=== PATIENT | female | born 1965 | race Caucasian/White ===

== ENCOUNTER 2022-12-25 21:22 | Day surgery (SDC) | payer OTHER, SELFPAY ==
--- NOTE | ~2022-12-25 | CT_ITS ---
EXAMINATION: CT ABDOMEN AND PELVIS WITHOUT AND WITH CONTRAST CLINICAL INFORMATION: Abdominal pain. COMPARISON: None available. TECHNIQUE: Multidetector volumetric imaging was performed from the lung bases to the pubic symphysis following the administration of: Oral contrast: None Intravenous contrast: 65 mL Omnipaque 350 No contrast reaction reported. Sagittal and coronal reformatted images were obtained on the technologist's workstation. This CT examination was performed using dose optimization techniques as appropriate, variously including the following: *Automated exposure control *Adjustment of mA and/or kV according to patient size (this includes techniques or standardized protocols for targeted exams where dose is matched to indication/reason for exam; i.e. extremities or head) *Use of iterative reconstruction technique Total exam dose-length product 1299 mGy-cm. FINDINGS: VISUALIZED CHEST: Visualized lung bases and mediastinum are normal. No pleural effusion. LIVER, GALLBLADDER, AND BILIARY TREE: The liver is normal in size, shape, and attenuation. No focal hepatic lesion or biliary ductal dilatation is present. The gallbladder is unremarkable with no evidence of radiopaque gallstones, gallbladder wall thickening, or obvious pericholecystic inflammatory changes. PANCREAS: Normal; no mass or surrounding fluid. SPLEEN: Normal size. No focal lesion. ADRENAL GLANDS: Normal; no mass. KIDNEYS AND URETERS: The kidneys are normal in size, shape, and attenuation. No hydronephrosis, hydroureter, or calculi. GASTROINTESTINAL TRACT: The large and small bowel are unremarkable. There are 2 radiopaque structures within the liver right colon measuring 1.7 cm. Normal appendix. ABDOMINAL WALL: There is a minimal umbilical hernia containing fat. LYMPHOVASCULAR STRUCTURES: No lymphadenopathy. The aorta is normal in caliber. BLADDER: No focal mass or wall thickening seen. No bladder calculi. PELVIC VISCERA: Unremarkable. OSSEOUS STRUCTURES: Unremarkable. CT/CT gi bleed abd pel wo/w IVcon IMPRESSION: No acute intra-abdominal process. Two radiopaque structures within the right colon possibly post procedural versus ingested. No evidence for active GI bleeding. Fleischner guidelines were utilized.
[2022-12-25 21:29] VITALS: BP 135/96; PULSE 73; RESP 18; TEMP 36.7; O2SAT 97; BMI 28.4
--- NOTE | 2022-12-25 21:38 | ECG_ITS ---
Test Reason : near syncope Blood Pressure : / mmHG Vent. Rate : 064 BPM Atrial Rate : 064 BPM P-R Int : 176 ms QRS Dur : 094 ms QT Int : 408 ms P-R-T Axes : 060 -01 014 degrees QTc Int : 420 ms Normal sinus rhythm Normal ECG No previous ECGs available Referred By: Generic ED Physician Electronically Signed By:ALEXYS FIORE
[2022-12-25 22:02] LABS: MANUAL DIFF FLAG NO
[2022-12-25 22:03] LABS: Basophils Absolute Auto 0.1 X10*3/uL (0.0-0.2); Basophils Percent Auto 0.4 % (0-2); Eosinophils Absolute Auto 0.2 X10*3/uL (0.0-0.4); Eosinophils Percent Auto 1.2 % (0-4); Hematocrit 33.3 % (37.0-47.0); Imm Gran Abs Auto 0.04 X10*3/uL (0.00-0.03); Imm Gran Pct Auto 0.3 % (0.0-0.4); Lymphocytes Absolute Auto 2.1 X10*3/uL (1.2-4.9); Lymphocytes Percent Auto 16.9 % (20-40); Mean Corpuscular Hemoglobin 33.6 pg (27.0-33.0); Mean Corpuscular Volume 93.3 fL (80.0-98.0); Mean Platelet Volume 10.4 fL (9.4-12.3); Monocytes Absolute Auto 0.6 X10*3/uL (0.1-1.2); Monocytes Percent Auto 4.7 % (2-11); Neutrophils Absolute Auto 9.4 x10*3/uL (2.0-8.3); Neutrophils Percent Auto 76.5 % (45-73); Platelet Count 254 X10*3/uL (160-400); Red Blood Count 3.57 X10*6/uL (4.20-5.50); White Blood Count 12.3 X10*3/uL (4.8-10.8)
[2022-12-25 22:22] LABS: Alanine Aminotransferase 13 U/L (0-31); Alkaline Phosphatase 80 U/L (39-117); Anion Gap 14 (12-20); Aspartate Amino Transferase 21 U/L (5-31); Bilirubin Total 0.5 mg/dL (0.0-1.0); Blood Urea Nitrogen 13 mg/dL (9-16); Calcium 9.3 mg/dL (8.4-10.2); Carbon Dioxide 23 mmol/L (22-29); Chloride 106 mmol/L (96-108); Creatinine Clr Calc Pharmacy 84.3; Estimated Glomerular Filt Rate > 60; Glucose Random 142 mg/dL (60-115); Potassium 3.8 mmol/L (3.3-5.1); Sodium 139 mmol/L (135-145)
--- NOTE | 2022-12-25 22:51 | ED.GIBLEED ---
HPI - GI Bleed General Chief complaint: GI Bleed Stated complaint: colonscopy 12/24 rectal bleeding Time Seen by Provider: 12/25/22 22:40 Source: patient Mode of arrival: ambulatory Limitations: no limitations History of Present Illness HPI Narrative: Patient status post surveillance colonoscopy with polypectomy 12 mm polyp in distal ascending colon, 12/24/22 at [facility] started having bright red rectal bleeding 13:00 yesterday about 4- 5 bowel movements every hour with fresh blood till 1600 then she got better went for dinner at only light food and appear felt lightheaded diffuse cramping almost passed out went back home and had multiple bloody bowel movements at least 6 times since then, no bowel movement for last 1 hour patient feeling much better now except for diffuse abdominal cramping Related Data Allergies Allergy/AdvReac Type Severity Reaction Status Date / Time codeine AdvReac Gastrointestinal Verified 12/25/22 21:28 Upset Sulfa (Sulfonamide AdvReac Diarrhea Verified 12/25/22 21:28 Antibiotics) Review of Systems Review of Systems: Yes all other systems are reviewed and are negative [facility] Social History Social History Advance Directives: No Advance Directives Information Provided: No Patient : No Physical Exam Vital Signs: Vital Signs: Last Vital Signs Temp 98.4 F 12/26/22 05:51 Pulse 68 12/26/22 05:51 Resp 18 12/26/22 05:51 BP 112/70 12/26/22 05:51 Pulse Ox 97 12/26/22 05:51 O2 Del Method Room Air 12/26/22 05:51 BMI result Body Mass Index 28.4 Appearance: Alert. Oriented X3. No acute distress. Eyes: No pallor or icterus ENT: Pharynx normal. Oral Mucosa moist Neck: Normal inspection. Neck supple. CVS: Normal heart rate and rhythm. Pulses normal. Respiratory: No respiratory distress. Equal air entry bilateral, no wheezing/rales/rhonchi Abdomen: Soft mild left lower quadrant tenderness no rebound tenderness or guarding Bowel sounds are present, no mass palpable, no CVA tenderness Skin: Skin warm and dry. Normal skin color. Normal skin turgor. Extremities: No lower extremity edema. No calf tenderness Neuro: Oriented X 3. No motor deficit. Medications Administered Discontinued Medications Generic Name Dose Route Start Last Admin Trade Name Freq PRN Reason Stop Dose Admin Sodium Chloride 1,000 mls @ 999 mls/hr 12/25/22 23:51 12/26/22 02:45 Ns IV 12/26/22 00:51 Infused .Q1H1M ONE Infusion Tranexamic Acid 1,000 mg/ 260 mls @ 32.5 mls/hr 12/26/22 01:44 12/26/22 02:38 Sodium Chloride IV 12/26/22 09:43 Not Given .Q8H ONE Tranexamic Acid 1,000 mg/ 60 mls @ 360 mls/hr 12/26/22 02:15 12/26/22 02:47 Sodium Chloride IV 12/26/22 02:24 Infused ONCE ONE Infusion Sodium Chloride 1,000 mls @ 999 mls/hr 12/26/22 06:05 12/26/22 06:22 Ns IV 12/26/22 07:05 999 mls/hr .Q1H1M ONE Administration Iohexol 65 ml 12/26/22 01:39 12/26/22 01:41 Iohexol 350 Mg/Ml 100 Ml Infus..Btl IV 12/26/22 01:40 65 ml ONCE ONE Administration Polyethylene Glycol/Electrolytes 4,000 ml 12/26/22 06:15 12/26/22 06:46 Peg 3350/Na Sulf,Bicarb,Cl/Kcl 4,000 Ml Soln.Recon PO 12/26/22 06:16 4,000 ml ONCE ONE Administration Protocol Medical Decision Making Medical Decision Making MDM Narrative: Patient with lower GI bleed post polypectomy on 12/24 with near-syncope episode hemoglobin on arrival was 12 dropped to 11.1 last bowel movement with blood was just aftermidnight patient received 1 g of TXA no active bleeding at this time vitals are stable case discussed with Dr. shipley advised a recheck H&H and plan for keeping her for observation for colonoscopy if bleeding recurs Differential Diagnosis Differential Diagnoses: The differential diagnosis associated with the presentation includes GI bleed post polypectomy/diverticulitis Admission/Observation Consideration of admission/observation: Escalation of care including admission/observation considered Consult Healthcare Provider Management of the patient was discussed with: Hospitalist Lab Data MDM Lab Attestation statement: I reviewed the patient's lab results. 12/26/22 04:39 12/25/22 21:56 Labs: Lab Results 12/25/22 12/26/22 12/26/22 Range/Units 21:56 00:12 04:39 WBC 12.3 H (4.8-10.8) X10*3/uL RBC 3.57 L (4.20-5.50) X10*6/uL Hgb 12.0 11.8 L 11.1 L (12.0-16.0) g/dl Hct 33.3 L 33.2 L 31.8 L (37.0-47.0) % MCV 93.3 (80.0-98.0) fL MCH 33.6 H (27.0-33.0) pg MCHC 36.0 H (31.0-35.0) g/dl RDW 12.0 (11.0-16.0) % Plt Count 254 (160-400) X10*3/uL MPV 10.4 (9.4-12.3) fL Immature Gran % (Auto) 0.3 (0.0-0.4) % Neut % (Auto) 76.5 H (45-73) % Lymph % (Auto) 16.9 L (20-40) % [place] % (Auto) 4.7 (2-11) % Eos % (Auto) 1.2 (0-4) % Baso % (Auto) 0.4 (0-2) % Lymph # (Auto) 2.1 (1.2-4.9) X10*3/uL [place] # (Auto) 0.6 (0.1-1.2) X10*3/uL Eos # (Auto) 0.2 (0.0-0.4) X10*3/uL Baso # (Auto) 0.1 (0.0-0.2) X10*3/uL Abs Immat Gran (auto) 0.04 H (0.00-0.03) X10*3/uL Absolute Neuts (auto) 9.4 H (2.0-8.3) x10*3/uL Absolute Nucleated RBC 0.000 (0.0-0.012) X10*3/uL Nucleated RBC % (auto) 0.0 (0.0-0.2) /100WBC PT 11.2 (11.1-13.3) SEC INR 0.9 (0.9-1.1) Sodium 139 (135-145) mmol/L Potassium 3.8 (3.3-5.1) mmol/L Chloride 106 (96-108) mmol/L Carbon Dioxide 23 (22-29) mmol/L Anion Gap 14 (12-20) BUN 13 (9-16) mg/dL Creatinine 0.73 (0.5-1.4) mg/dL Estim Creat Clear Calc 84.3 Estimated GFR > 60 Random Glucose 142 H (60-115) mg/dL Calcium 9.3 (8.4-10.2) mg/dL Total Bilirubin 0.5 (0.0-1.0) mg/dL AST 21 (5-31) U/L ALT 13 (0-31) U/L Alkaline Phosphatase 80 (39-117) U/L Total Protein 7.0 (6.5-8.0) g/dL Albumin 4.0 (3.5-5.0) g/dL Blood Type Antibody Screen 12/26/22 Range/Units 05:07 WBC (4.8-10.8) X10*3/uL RBC (4.20-5.50) X10*6/uL Hgb (12.0-16.0) g/dl Hct (37.0-47.0) % MCV (80.0-98.0) fL MCH (27.0-33.0) pg MCHC (31.0-35.0) g/dl RDW (11.0-16.0) % Plt Count (160-400) X10*3/uL MPV (9.4-12.3) fL Immature Gran % (Auto) (0.0-0.4) % Neut % (Auto) (45-73) % Lymph % (Auto) (20-40) % [place] % (Auto) (2-11) % Eos % (Auto) (0-4) % Baso % (Auto) (0-2) % Lymph # (Auto) (1.2-4.9) X10*3/uL [place] # (Auto) (0.1-1.2) X10*3/uL Eos # (Auto) (0.0-0.4) X10*3/uL Baso # (Auto) (0.0-0.2) X10*3/uL Abs Immat Gran (auto) (0.00-0.03) X10*3/uL Absolute Neuts (auto) (2.0-8.3) x10*3/uL Absolute Nucleated RBC (0.0-0.012) X10*3/uL Nucleated RBC % (auto) (0.0-0.2) /100WBC PT (11.1-13.3) SEC INR (0.9-1.1) Sodium (135-145) mmol/L Potassium (3.3-5.1) mmol/L Chloride (96-108) mmol/L Carbon Dioxide (22-29) mmol/L Anion Gap (12-20) BUN (9-16) mg/dL Creatinine (0.5-1.4) mg/dL Estim Creat Clear Calc Estimated GFR Random Glucose (60-115) mg/dL Calcium (8.4-10.2) mg/dL Total Bilirubin (0.0-1.0) mg/dL AST (5-31) U/L ALT (0-31) U/L Alkaline Phosphatase (39-117) U/L Total Protein (6.5-8.0) g/dL Albumin (3.5-5.0) g/dL Blood Type A Positive Antibody Screen NEGATIVE Radiology Impression Discussion of test interpretation with radiology: I have reviewed the radiologist's reading. Radiologist Impression: [address] [place] [address] CT Scan Report Signed Patient: Cheryl Davies MR#: [id number] : 1965 Acct:[id number] Age/Sex: 57 / F ADM Date: 12/25/22 Loc: .ED Attending Dr: Ordering Physician: Hemant Vega MD Date of Service: 12/26/22 Procedure(s): CT gi bleed abd pel wo/w IVcon Accession Number(s): [id number] cc: TIFFANY WHEELER MD; Hemant Vega MD~ EXAMINATION: CT ABDOMEN AND PELVIS WITHOUT AND WITH CONTRAST CLINICAL INFORMATION: Abdominal pain. COMPARISON: None available. TECHNIQUE: Multidetector volumetric imaging was performed from the lung bases to the pubic symphysis following the administration of: Oral contrast: None Intravenous contrast: 65 mL Omnipaque 350 No contrast reaction reported. Sagittal and coronal reformatted images were obtained on the technologist's workstation. This CT examination was performed using dose optimization techniques as appropriate, variously including the following: *Automated exposure control *Adjustment of mA and/or kV according to patient size (this includes techniques or standardized protocols for targeted exams where dose is matched to indication/reason for exam; i.e. extremities or head) *Use of iterative reconstruction technique Total exam dose-length product 1299 mGy-cm. FINDINGS: VISUALIZED CHEST: Visualized lung bases and mediastinum are normal. No pleural effusion. LIVER, GALLBLADDER, AND BILIARY TREE: The liver is normal in size, shape, and attenuation. No focal hepatic lesion or biliary ductal dilatation is present. The gallbladder is unremarkable with no evidence of radiopaque gallstones, gallbladder wall thickening, or obvious pericholecystic inflammatory changes. PANCREAS: Normal; no mass or surrounding fluid. SPLEEN: Normal size. No focal lesion. ADRENAL GLANDS: Normal; no mass. KIDNEYS AND URETERS: The kidneys are normal in size, shape, and attenuation. No hydronephrosis, hydroureter, or calculi. GASTROINTESTINAL TRACT: The large and small bowel are unremarkable. There are 2 radiopaque structures within the liver right colon measuring 1.7 cm. Normal appendix. ABDOMINAL WALL: There is a minimal umbilical hernia containing fat. LYMPHOVASCULAR STRUCTURES: No lymphadenopathy. The aorta is normal in caliber. BLADDER: No focal mass or wall thickening seen. No bladder calculi. PELVIC VISCERA: Unremarkable. OSSEOUS STRUCTURES: Unremarkable. CT/CT gi bleed abd pel wo/w IVcon IMPRESSION: No acute intra-abdominal process. Two radiopaque structures within the right colon possibly post procedural versus ingested. No evidence for active GI bleeding. Fleischner guidelines were utilized. Critical Care Time Critical Care Time Critical Care Time: Yes Total Critical Care Time: 45 Attestation: The patient was critically ill with a high probability of imminent or life threatening deterioration. I spent greater than 50 minutes of discontinuous time evaluating the patient,delivering critical care at the bedside, discussing and evaluating pertinent data with consultants. Critical care time does not include time spent performing separately billable procedures or teaching. Total time spent performing critical care was 45 minutes. Discharge Plan Discharge Clinical Impression: Lower gastrointestinal hemorrhage Patient Disposition: Still a Patient
--- OUTSIDE RECORDS SUMMARY | 2022-12-25 23:15 | XMS_ITS | Continuity of Care Document ---
Author Name Unknown Organization [facility] Address [address] [place] [address]- Care Team Providers Care Education Department Chair Name Role Phone Elisa Kaba MD Primary Care Physician [facility] Date[facility]s): 10/23[facility]21 - 11/22/21 [facility] [address] [place], [place] [address] Attending Physician: Rina Kelsey Admitting Physician: Admtr, Rina Referring Physician: Admtr, Ar8 Allergies, Adverse Reactions, Alerts Substance Reaction Severity Status codeine abdominal pain Active sulfa drugs Active Immunizations Given and Recorded Vaccine Date Status Refusal Reason SARS-CoV-2 mRNA ([id number]) vax 09/08/21 Recorded SARS-CoV-2 (COVID-19) mRNA-1273 vaccine 03/13/21 R ecorded influenza virus vaccine, inactivated 02/27/21 Low rded influenza virus vaccine, inactivated 01/07/20 Low rded influenza virus vaccine, inactivated 02/09/18 Give n influenza virus vaccine, inactivated 1 01/07/17 Gi mary influenza virus vaccine, inactivated 2 05/26/13 Gi mary influenza virus vaccine, inactivated 3 03/12/12 Gi mary influenza virus vaccine, inactivated 4 01/31/11 Gi mary tetanus/diphtheria/pertussis, acel(Tdap) 5 09/26/08 Given 1Result Comment: [01/07/2017] [id number] flu season [facility]# [id number] Pt. tolerated inj. without complications...CO 2Admin Note: per pt 3Admin Note: PER PT 4Admin Note: DONE AT WORK 5Admin Note: DONE AT WORK Medications Calcium 600 +D oral tablet 1 tablet, By Mouth, 3 times a day, 0 Refills, Maintenance Start Date: 03/06/11 Status: Ordered Fiber Choice = 3 Gm, 3 times a day, 0 Refills, Maintenance, 11/24/17 10:06:13 EDT Start Date: 11/24/17 Status: Ordered Multivitamin Tablet 1 tablet, By Mouth, Daily, # 30 tablet, 0 Refills, Maintenance, Tablet Start Date: 03/06/11 Status: Ordered spirulina spirulina, Refills 0, Maintenance, 01/18/16 16:08:20, Compound Start Date: 01/18/16 Status: Ordered Problem List Condition Effective Dates Status Health Status Inform ant Serrated adenoma of colon(Confirmed) 1 03/26/16 Active Malignant melanoma of cheek(Confirmed) Active 1repeat screening colonoscopy in 2020 Social History Social History Type Response Smoking Status Former smoker, quit more than 30 days ago entered on: 01/02/21 Sex
--- OUTSIDE RECORDS SUMMARY | 2022-12-25 23:15 | XMS_ITS | Continuity of Care Document ---
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 Role Phone Elisa Kaba MD Primary Care Physician [phone] Encounter [facility] NBR [id number] Date(s): 12/24/22 - 12/24/[address] [address]- Discharge Disposition: A-D/C Home Attending Physician: Bruno Fortune MD Admitting Physician: Bruno Fortune MD Referring Physician: Bruno Fortune MD Allergies, Adverse Reactions, Alerts Substance Reaction Severity Status codeine abdominal pain Active sulfa drugs Active Immunizations Given and Recorded Vaccine Date Status Refusal Reason tetanus/diphtheria/pertussis, acel(Tdap) 1 05/30/22 Given tetanus/diphtheria/pertussis, acel(Tdap) 2 09/26/08 Given influenza virus vaccine, inactivated 12/31/21 Low rded influenza virus vaccine, inactivated 02/27/21 Low rded influenza virus vaccine, inactivated 01/07/20 Low rded influenza virus vaccine, inactivated 02/09/18 Give n influenza virus vaccine, inactivated 3 01/07/17 Gi mary influenza virus vaccine, inactivated 4 05/26/13 Gi mary influenza virus vaccine, inactivated 5 03/12/12 Gi mary influenza virus vaccine, inactivated 6 01/31/11 Gi mary [id number] 12y+ bivalent booster vax 12/31/21 Recorded SARS-CoV-2 mRNA ([id number]) vax 09/08/21 Recorded SARS-CoV-2 (COVID-19) mRNA-1273 vaccine 03/13/21 R ecorded 1Result Comment: [facility]: [id number] 2Admin Note: DONE AT WORK 3Result Comment: [01/07/2017] [id number] flu season [facility]# [id number] Pt. tolerated inj. without complications...CO 4Admin Note: per pt 5Admin Note: PER PT 6Admin Note: DONE AT WORK Medications Calcium 600 +D oral tablet 1 tablet, By Mouth, Daily, 0 Refills, Maintenance, 03/06/11 9:00:55 EST Start Date: 03/06/11 Status: Ordered Multivitamin Tablet 1 tablet, By Mouth, Daily, # 30 tablet, 0 Refills, Maintenance, Tablet Start Date: 03/06/11 Status: Ordered NuLYTELY with Flavor Packs oral powder for reconstitution 240 mL, By Mouth, Every 10 minutes, split prep method, take 1st half of prep evening before procedure, 2nd half 6 hrs prior to procedure., # 1 each, 0 Refills, Maintenance, 09/24/22 13:51:00 EDT, [facility] #[id number], test date 9... Start Date: 09/24/22 Status: Ordered Problem List Condition Confirmation Course Effective Dates Status Health St atus Informant Serrated adenoma of colon 1 Confirmed 03/26/16 Active Malignant melanoma of cheek Confirmed Active 1repeat screening colonoscopy in 2020 Vital Signs Most recent to oldest [Reference Range]: 1 2 3 Height 163 cm (12/24/22 10:55 AM) Weight 75.7 kg (12/24/22 10:55 AM) Oxygen Saturation [94-100 %] 100 % (12/24/22 12:36 PM) 100 % (12/24/22 12:26 PM) 100 % (12/24/22 12:20 PM) Pulse Rate [55-90 bpm] 67 bpm (12/24/22 10:55 AM) Body Mass Index [18.5-24.99 kg/m2] 28.49 kg/m2 *H* (12/24/22 10:55 AM) Blood Pressure [90-138/55-84 mm Hg] 152/90mm Hg *H* (12/24/22 12:26 PM) 132/90mm Hg (12/24/22 12:20 PM) 135/92mm Hg (12/24/22 12:15 PM) Respiratory Rate [16-30 br/min] 17 br/min (12/24/22 12:26 PM) 11 br/min *L* (12/24/22 12:20 PM) 13 br/min *L* (12/24/22 12:15 PM) Temperature [96.8-100.4 DegF] 98.2 DegF (12/24/22 11:50 AM) 98.6 DegF (12/24/22 10:55 AM) Liters per Minute 6 L/min (12/24/22 11:50 AM) Mode of Delivery (Oxygen) Room air (12/24/22 12:36 PM) Room air (12/24/22 12:20 PM) Room air (12/24/22 12:15 PM) Blood pressure sites Arm, right (12/24/22 12:26 PM) Arm, right (12/24/22 12:20 PM) Arm, right (12/24/22 12:15 PM) Temperature Route Temporal (12/24/22 11:50 AM) Temporal (12/24/22 10:55 AM) Dry Weight 75.7 kg (12/24/22 10:55 AM) Weight Obtained Via Standing scale (12/24/22 10:55 AM) Dry Weight Obtained Via Standing scale (12/24/22 10:55 AM) Social History Social History Type Response Smoking Status Never (less than 100 in lifetime); Other: only in high school.; entered on: 05/30/22 Sex Patient Care team information Care Team Personnel Name: Sendy RAO, Elisa Espinoza Position: S Physician - Primary Care Member Role: PCP Address: Address: [address] [facility] [place] [address]- Care Team Related Persons Name: ALEXYS RAMIREZ Address: home [address] [place] [address]
--- OUTSIDE RECORDS SUMMARY | 2022-12-25 23:15 | XMS_ITS | Continuity of Care Document ---
Author Name Unknown Organization 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 [address] [place], [place] [address] Attending Physician: Elisa Kaba MD Allergies, Adverse Reactions, Alerts Substance Reaction [...] virus vaccine, inactivated 6 01/31/11 Gi mary [id number] 12y+ bivalent booster vax 12/31/21 Recorded SARS-CoV-2 mRNA ([id number]-[id number]) vax 09/08/21 Recorded SARS-CoV-2 (COVID-19) mRNA-1273 vaccine 03/13/21 R ecorded 1Result Comment: [facility]: [id number] 2Admin Note: DONE AT WORK 3Result Comment: [01/07/2017] [id number] flu season [facility]# [id number] Pt. tolerated inj. without complications...CO 4Admin Note: per pt 5Admin Note: PER PT 6Admin Note: DONE AT WORK Medications Calcium 600 +D oral tablet 1 tablet, By Mouth, Daily, 0 Refills, Maintenance, 03/06/11 9:00:55 EST Start Date: 03/06/11 Status: Ordered Multivitamin Tablet 1 tablet, By Mouth, Daily, # 30 tablet, 0 Refills, Maintenance, Tablet Start Date: 03/06/11 Status: Ordered Problem List Condition Confirmation Course Effective Dates Status Health St atus Informant Serrated adenoma of colon 1 Confirmed 03/26/16 Active Malignant melanoma of cheek Confirmed Active 1repeat screening colonoscopy in 2020 Vital Signs Most recent to oldest [Reference Range]: 1 Height 162.00 cm (05/30/22 2:37 PM) Weight 76.9 kg (05/30/22 2:37 PM) Oxygen Saturation [94-100 %] 97 % (05/30/22 2:37 PM) Pulse Rate [55-90 bpm] 62 bpm (05/30/22 2:37 PM) Body Mass Index [18.5-24.99 kg/m2] 29.3 kg/m2 *H* (05/30/22 2:37 PM) Blood Pressure [90-138/55-84 mm Hg] 126/ 66mm Hg (05/30/22 2:37 PM) Mode of Delivery (Oxygen) Room air (05/30/22 2:37 PM) Blood pressure sites Arm, left (05/30/22 2:37 PM) Weight Obtained Via Standing scale (05/30/22 2:37 PM) Social History Social History Type Response Smoking Status Never (less than 100 in lifetime); Other: only in high school.; entered on: 05/30/22 Sex Note * Arabella Galdamez: PERFORM, SIGN, VERIFY Event Display: Patient Education/Instruction Authored Date: [id number] [facility] *[facility] Clinical Summary Name WILFRED RAMIREZ Age 57 Years 1965 PCP Sendy RAO, Elisa Espinoza PCP Visit Date 05/30/2022 14:03:00 Patient Instructions call [facility] at [phone] to book?? mammogram and bone density schedule director of residence life exam do fasting blood work shingles vaccine - Additional Instructions: Scheduled Appointments?? Future Appointments ?No Future Appointments Scheduled Follow-Up Instructions ?? With: Address: When: Joy Bell CNM [address] [facility] [place] [address] Diagnosis Medications: Please continue your medications until treatment is completed or stopped by your provider. Discuss any questions related to medications with your provider. Medications to Continue Taking That Have Changed These medications were not printed or sent to your pharmacy - Calcium And Vitamin D Combination (Calcium 600 +D oral tablet) 1 tab(s) Oral Daily. Next Dose: Medications to Continue with No Changes These medications were not printed or sent to your pharmacy Multivitamin (Multivitamin Tablet) 1 tab(s) Oral Daily. Next Dose: No Longer Take the Following Medications Inulin (Fiber Choice) 3 gram 3 times a day. Miscellaneous Rx (spirulina) Allergy Info:?? sulfa drugs; codeine Medications Given This Visit Medication Dose Route tetanus/diphtheria/pertussis, acel(Tdap) ((Tdap) diphtheria/pertussis, acel/tetanus vacc) 0.5 mL Intramuscular Future Orders ?MM Digital Mammo Screening? Order Date:05/30/22?- Complete on or after?05/30/22 ?Dexa Bone Density (Axial)? Order Date:05/30/22?- Complete on or after?05/30/22 ?Glucose Level? Order Date:05/30/22?- Complete on or after?05/30/22 ?Lipid Panel? Order Date:05/30/22?- Complete on or after?05/30/22 Vital Signs Height 162.00 cm Weight 76.9 kg BMI 29.3 kg/m2 Blood Pressure 126 mm Hg/66 mm Hg Temperature Pulse Rate 62 bpm Respiratory Rate 02 Sat Mode of Delivery 97 %/Room air You can now view a summary of your hospital visit from the comfort of your home through a free online portal called [employer]anri. Gu[employer] is a website that allows you to securely view your medical information including discharge summary, medications and follow-up visits. ??You can alsosend a secure electronic message to your doctor???s office to request appointments, renew medications or just ask a question. You can enroll at [email or web address] or register during your next office visit. Disclaimer:?? The information provided is of a general nature and is intended to be used in conjunction with the recommendations and advice of your health care practitioner. ??Every effort has been made to ensure that the information provided is accurate and complete at the time it is provided to you however, as your needs change, or, as new ??information becomes available, different or additional instructions may be required. If you have questions, please consult with your primary care provider or pharmacist, as appropriate. ??This information is not intended to serve as substitution for assessment and evaluation by a qualified health care provider. If you do not have a primary care provider, you may find a [facility] provider by calling [facility] Link at [phone]. For information about the plan of care including goals and instructions for your diagnosis, please see the patient education orders section of this document. Patient Education Materials?? The content of this educational material or handout may have been modified, supplemented, or adapted from its original content and format to support your individualized medical care. Patient Care team information Care Team Personnel Name: Sendy RAO, Elisa Espinoza Position: S Primary Care Physician Member Role: PCP Address: Address: [address] [place] [address] Adult [place] [address]- Care Team Related Persons Name: ALEXYS RAMIREZ Address: home [address] [place] [address]
--- OUTSIDE RECORDS SUMMARY | 2022-12-25 23:15 | XMS_ITS | Continuity of Care Document ---
Author Name Unknown Organization [facility] Address [address] [place] [address]- Care Team Providers Care Mba Intern Name Role Phone Elisa Kaba MD Primary Care Physician [phone] [place] [facility] [place]): [place] 10[place]/22 [facility] [address], [place] [address] Attending Physician: Rina Kelsey Admitting Physician: AdmRina lucas Referring Physician: AdmtrRina Allergies, Adverse Reactions, Alerts Substance Reaction Severity [...] virus vaccine, inactivated 6 01/31/11 Gi mary [id number] 12y+ bivalent booster vax 12/31/21 Recorded SARS-CoV-2 mRNA (lpbnhez-ujwt-zliir) vax 09/08/21 Recorded SARS-CoV-2 (COVID-19) mRNA-1273 vaccine 03/13/21 R ecorded 1Result Comment: [facility]: [id number] 2Admin Note: DONE AT WORK 3Result Comment: [01/07/2017] 1476-2161 flu season [facility]# [id number] Pt. tolerated inj. without complications...CO 4Admin Note: [...] each, 0 Refills, Maintenance, 09/24/22 13:51:00 EDT, [id number], test date 9... Start Date: 09/24/22 Status: Ordered Problem List Condition Confirmation Course Effective Dates Status Health St atus Informant Serrated adenoma of colon 1 Confirmed 03/26/16 Active Malignant melanoma of cheek Confirmed Active 1repeat screening colonoscopy in 2020 Social History Social History Type Response Smoking Status Never (less than 100 in lifetime); Other: only in high school.; entered on: 05/30/22 Sex Patient Care team information Care Team Personnel Name: Elisa Kaba MD Position: S Physician - Primary Care Member Role: PCP Address: Address: [address] [place] [address] Adult & [place] [address]- Care Team Related Persons Name: ALEXYS RAMIREZ Address: home [address] [place] [address]
--- OUTSIDE RECORDS SUMMARY | 2022-12-25 23:15 | XMS_ITS | Continuity of Care Document ---
Author Name Unknown Organization [facility] Address [address] [place] [address]- Care Team Providers Care Philosophy And Religion Instructor Name Role Phone Elisa Kaba MD Primary Care Physician [facility]counter [facility] Date(s): 10/25/21 - 11/24/21 [facility] [address] [place], [place] [address] Allergies, Adverse Reactions, Alerts Substance Reaction Severity Status codeine abdominal pain Active sulfa drugs Active Immunizations Given and Recorded Vaccine Date Status Refusal Reason SARS-CoV-2 mRNA (cddvkgm-qyym-xxyvb) vax 09/08/21 Recorded SARS-CoV-2 (COVID-19) mRNA-1273 vaccine [...] acel(Tdap) 5 09/26/08 Given 1Result Comment: [01/07/2017] 4695-54[address] flu [address] [facility]# [id number] Pt. tolerated inj. without complications...CO 2Admin Note: [...]
--- OUTSIDE RECORDS SUMMARY | 2022-12-25 23:15 | XMS_ITS | Continuity of Care Document ---
Author Name Unknown Organization [facility] Address [address] [place] [address]- Care Team Providers Care Electronic Sales And Service Technician Name Role Phone Elisa Kaba MD Primary Care Physician [phone] Encounter [facility] Date(s): 09/14/22 - 10/14/22 [facility] [address] [place], [place] [address] Allergies, Adverse Reactions, Alerts Substance Reaction Severity [...] virus vaccine, inactivated 6 01/31/11 Gi mary [id number]-JzC-0gSMC 12y+ bivalent booster vax 12/31/21 Recorded SARS-CoV-2 mRNA (wfzrusl-qmfl-manyw) vax 09/08/21 Recorded SARS-CoV-2 (COVID-19) mRNA-1273 vaccine 03/13/21 R ecorded 1Result Comment: [facility]: [id number] 2Admin Note: DONE AT WORK 3Result Comment: [01/07/2017] 4462-[address] [facility]# [id number] Pt. tolerated inj. without complications...CO 4Admin Note: [...] 09/24/22 13:51:00 EDT, [id number], test date 9... Start Date: 09/24/22 Status: [...] Personnel Name: Sendy RAO, Elisa Espinoza Position: [facility] Physician - Primary Care Member Role: PCP Address: Address: [address] [place] [address] Adult & [place] [address]- Care Team Related Persons Name: ALEXYS RAMIREZ Address: home [address] [place] [address]
--- OUTSIDE RECORDS SUMMARY | 2022-12-25 23:15 | XMS_ITS | Continuity of Care Document ---
Author Name Unknown Organization [facility] Address [address], [address] [place] [address]- Care Team Providers Care Operations Program Manager Name Role Phone Elisa Kaba MD Primary Care Physician Encounter [facility] [place] Date(s): 12/31/20 - 01/07/21 [facility] [address], [address]th [place] [address]- Attending Physician: Georgi Robison MD Referring Physician: Elisa Kaba MD Allergies, Adverse Reactions, Alerts Substance Reaction Severity Status codeine abdominal pain Active sulfa drugs Active Immunizations Given and Recorded Vaccine Date Status Refusal Reason influenza virus vaccine, inactivated 02/09/18 Give n influenza virus vaccine, inactivated 1 01/07/17 Gi mary influenza virus vaccine, inactivated 2 05/26/13 Gi mary influenza virus vaccine, inactivated 3 03/12/12 Gi mary influenza virus vaccine, inactivated 4 01/31/11 Gi mary tetanus/diphtheria/pertussis, acel(Tdap) 5 09/26/08 Given 1Result Comment: [01/07/2017] 8936-7002 flu season [facility]# [id number] Pt. tolerated inj. without complications...CO 2Admin Note: [...] cheek(Confirmed) Active 1repeat screening colonoscopy in 2020 Vital Signs Most recent to oldest [Reference Range]: 1 Height 162.00 cm (12/31/20 9:59 AM) Weight 70.5 kg (12/31/20 9:59 AM) Pulse Rate [55-90 bpm] 60 bpm (12/31/20 9:59 AM) Body Mass Index [18.5-24.99] 26.86 *H* (12/31/20 9:59 AM) Blood Pressure [90-138/55-84 mm Hg] 131/ 81mm Hg (12/31/20 9:59 AM) Blood pressure sites Arm, right (12/31/20 9:59 AM) Dry Weight 70.5 kg (12/31/20 9:59 AM) Weight Obtained Via Standing scale (12/31/20 9:59 AM) Dry Weight Obtained Via Standing scale (12/31/20 9:59 AM) Social History Social History Type Response Smoking Status Former smoker, quit more than 30 days ago entered on: 01/02/21 Sex
--- OUTSIDE RECORDS SUMMARY | 2022-12-25 23:15 | XMS_ITS | Continuity of Care Document ---
Author Name Unknown Organization [facility] Address [address], [address] [place] [address]- Care Team Providers Care Legal Coordinator Name Role Phone Elisa Kaba MD Primary [facility] Physician [id number]19/19 - 07/29/19 [facility] [address], [address] [place] [address]- Attending Physician: Rina Kelsey Admitting Physician: Rina Kelsey Referring Physician: Rina Kelsey Allergies, Adverse Reactions, Alerts Substance Reaction Severity [...] acel(Tdap) 5 09/26/08 Given 1Result Comment: [01/07/2017] 4852-5609 flu season [facility]# [id number] Pt. tolerated inj. without complications...CO 2Admin Note: [...] Social History Type Response Smoking Status Former smoker; Type: Cigarettes; Tobacco use times per day: in teenage yrs; entered on: 01/25/16 Sex
--- OUTSIDE RECORDS SUMMARY | 2022-12-25 23:15 | XMS_ITS | Continuity of Care Document ---
Author Name Unknown Organization [facility] Address [address] [place] [address]- Care Team Providers Care Director Workers Compensation Name Role Phone Elisa Kaba MD Primary Care Physician [place] [facility] Date(s): 09/24/22 - 10/24/22 [facility] [address] [place] [address] Allergies, Adverse Reactions, Alerts Substance Reaction Severity [...] virus vaccine, inactivated 6 01/31/11 Gi mary OHUE-WmL-2eWCV 12y+ bivalent booster vax 12/31/21 Recorded SARS-CoV-2 mRNA (ekkinup-khyv-guaem) vax 09/08/21 Recorded SARS-CoV-2 (COVID-19) mRNA-1273 vaccine 03/13/21 R ecorded 1Result Comment: [facility]: [id number] 2Admin Note: DONE AT WORK 3Result Comment: [01/07/2017] 3674-8500 flu season [facility]# [id number] Pt. tolerated inj. without complications...CO 4Admin Note: [...] each, 0 Refills, Maintenance, 09/24/22 13:51:00 EDT, [id number], test date 9... Start Date: 09/24/22 Status: [...] Personnel Name: Sendy RAO, Elisa Espinoza Position: [facility] Physician - Primary Care Member Role: PCP Address: Address: [address] [facility] Adult [place] [address]- Care Team Related Persons Name: ALEXYS RAMIREZ Address: home [address] [place] [address]
--- OUTSIDE RECORDS SUMMARY | 2022-12-25 23:15 | XMS_ITS | Continuity of Care Document ---
Author Name Unknown Organization [facility] Address [address] [place] [address]- Care Team Providers Care Medical Corps Officer Name Role Phone Elisa Kaba MD Primary Care Physician [phone] Encounter [facility] Date(s): 09/22/22 - 10/22/22 [facility] [address] [place], [place] [address] Allergies, Adverse Reactions, Alerts Substance Reaction Severity [...] virus vaccine, inactivated 6 01/31/11 Gi mary [id number]-KqC-7wVUP 12y+ bivalent booster vax 12/31/21 Recorded SARS-CoV-2 mRNA (kqntxuh-fgix-cwswr) vax 09/08/21 Recorded SARS-CoV-2 (COVID-19) mRNA-1273 vaccine 03/13/21 R ecorded 1Result Comment: [facility]: [id number] 2Admin Note: DONE AT WORK 3Result Comment: [01/07/2017] 0400-0455 flu season [facility]# [id number] Pt. tolerated inj. without complications...CO 4Admin Note: [...] 09/24/22 13:51:00 EDT, [facility][id number], test date 9... Start Date: 09/24/22 Status: [...] Personnel Name: Sendy RAO, Elisa Espinoza Position: [facility] Physician - Primary Care Member Role: PCP Address: Address: [address] [place] [address] Adult & [place] [address]- Care Team Related Persons Name: ALEXYS RAMIREZ Address: home [address] [place] [address]
--- OUTSIDE RECORDS SUMMARY | 2022-12-25 23:16 | XMS_ITS | Continuity of Care Document ---
Author Name Unknown Organization [facility] Address [address] [place] [address]- Care Team Providers Care Lead Nitrate Processor Name Role Phone Elisa Kaba MD Primary Care Physician Encounter [facility] [place] Date(s): 10/23/21 - 10/30/21 [facility] [address] [place] [address]- Encounter Diagnosis Pain of right thumb(Discharge Diagnosis) - 10/23/21 Attending Physician: Erlinda MAYA, Aranza Referring Physician: Elisa Kaba MD Allergies, Adverse Reactions, Alerts Substance Reaction Severity Status codeine abdominal pain Active sulfa drugs Active Immunizations Given and Recorded Vaccine Date Status Refusal Reason SARS-CoV-2 mRNA (dztoctl-avhf-pmbol) vax 09/08/21 Recorded SARS-CoV-2 (COVID-19) mRNA-1273 vaccine [...] acel(Tdap) 5 09/26/08 Given 1Result Comment: [01/07/2017] 4291-9311 flu season [facility]# [id number] Pt. tolerated inj. without complications...CO 2Admin Note: [...] cheek(Confirmed) Active 1repeat screening colonoscopy in 2020 Diagnosis Diagnosis Type Effective Dates Health Status Cl inical Service Informant Pain of right thumb Discharge Diagnosis 10/23/21 Vital Signs Most recent to oldest [Reference Range]: 1 Height 162.00 cm (10/23/21 4:13 PM) Weight 73.7 kg (10/23/21 4:13 PM) Oxygen Saturation [94-100 %] 98 % (10/23/21 4:13 PM) Pulse Rate [55-90 bpm] 69 bpm (10/23/21 4:13 PM) Body Mass Index [18.5-24.99] 28.08 *H* (10/23/21 4:13 PM) Blood Pressure [90-138/55-84 mm Hg] 136/ 96mm Hg (10/23/21 4:13 PM) Mode of Delivery (Oxygen) Room air (10/23/21 4:13 PM) Blood pressure sites Arm, left (10/23/21 4:13 PM) Weight Obtained Via Standing scale (10/23/21 4:13 PM) Social History Social History Type Response Smoking Status Former smoker, quit more than 30 days ago entered on: 01/02/21 Sex
--- OUTSIDE RECORDS SUMMARY | 2022-12-25 23:16 | XMS_ITS | Continuity of Care Document ---
Author Name Unknown Organization [facility] Address [address] [place] [address]- Care Team Providers Care Senior Etl Developer Name Role Phone Elisa Kaba MD Primary Care Physician Encounter [facility] Date(s): 05/30/22 - 06/29/22 [facility] [address] [place], [place] [address] Attending Physician: Rina Kelsey Admitting Physician: AdmRina lucas Referring Physician: Admtr, Ar8 Allergies, Adverse Reactions, [...] virus vaccine, inactivated 6 01/31/11 Gi mary QXQW-MbQ-5gZHU 12y+ bivalent booster vax 12/31/21 Recorded SARS-CoV-2 mRNA (qbuejnl-iatr-snasf) vax 09/08/21 Recorded SARS-CoV-2 (COVID-19) mRNA-1273 vaccine 03/13/21 R ecorded 1Result Comment: [facility]: [id number] 2Admin Note: DONE AT WORK 3Result Comment: [01/07/2017] 0716-7538 flu season [facility]# [id number] Pt. tolerated inj. without complications...CO 4Admin Note: [...] school.; entered on: 05/30/22 Sex Note * Event Display: Laboratory Result Scanned Authored Date: * Event Display: Non BH Lab Results Authored Date: Patient Care team information Care Team Personnel Name: Sendy RAO, Elisa Espinoza Position: [facility] Primary Care Physician Member Role: PCP Address: Address: [facility] [address] [facility] Adult [place] [address]- Care Team Related Persons Name: ALEXYS RAMIREZ Address: home [address] [place] [address]
[2022-12-25 23:35] VITALS: BP 128/72; PULSE 64; RESP 18; TEMP 36.9; O2SAT 97
[2022-12-26] VITALS (10 sets, daily range): BP systolic 95–149; BP diastolic 57–86; PULSE 59–100; RESP 16–18; TEMP 36.4–36.9; O2SAT 97–100; BMI 28.3
[2022-12-26 00:17] LABS: Hematocrit 33.2 % (37.0-47.0); Hemoglobin 11.8 g/dl (12.0-16.0)
[2022-12-26 00:23] LABS: INTERNATIONAL NORM RATIO 0.9 (0.9-1.1); Prothrombin Time 11.2 SEC (11.1-13.3)
[2022-12-26] MEDS: 0.9 % Sodium Chloride 1,000 ML 999 ML IV ×2 (00:33→06:22)
[2022-12-26] MEDS: iohexoL 350 MG/ML 100 ML INFUS..BTL 65 ML IV (01:41)
[2022-12-26] MEDS: Tranexamic Acid 1,000 MG in 0.9 % Sodium Chloride 50 ML 360 MG IV (02:36)
--- NOTE | 2022-12-26 04:15 | PC.NURSE ---
This RN assumed care at 0015. Patient alert and oriented, skin pale warm and dry.
[2022-12-26 04:43] LABS: Hematocrit 31.8 % (37.0-47.0); Hemoglobin 11.1 g/dl (12.0-16.0)
--- NOTE | 2022-12-26 06:26 | PC.NURSE ---
Patient able to ambulate to the bathroom as needed. Patient has no complaints of dizziness, pain, or nausea. Currently awaiting medication to be brought by pharmacy, plan is to d/c at noon as of now
[2022-12-26] MEDS: PEG 3350/Na Sulf,Bicarb,Cl/KCL 4,000 ML SOLN.RECON 4000 ML PO (06:46)
--- NOTE | 2022-12-26 07:16 | PC.NURSE ---
continues to drink her prep for potential scope. iv fluids infusing. bedside commode in room.
[2022-12-26 07:48] LABS: Hematocrit 36.4 % (37.0-47.0); Hemoglobin 12.5 g/dl (12.0-16.0)
--- NOTE | 2022-12-26 09:21 | PC.NURSE ---
plan for colonoscopy today at approx 1400. pt completed prep, ambulating to bathroom with steady gait.
--- NOTE | 2022-12-26 15:02 | P.CONAN_ITS ---
[facility] Active Problems Active Problems: All Active Problems (Updated 12/26/22 @ 07:06 by Hemant Vega MD) Lower gastrointestinal hemorrhage (Acute) Family History Family history of problems with anesthesia: No Surgical History History of Problems with Anesthesia: No Social History Social History Patient Tobacco Use Status: Never used Tobacco Use of substances other than those prescribed or required for medical reasons: No Advance Directives: No Advance Directives Information Provided: No Recently lost weight without trying: No Nutrition Risks: No Nutritional Risk Patient : No Meds Allergies Allergy/AdvReac Type Severity Reaction Status Date / Time codeine AdvReac Gastrointestinal Verified 12/25/22 21:28 Upset Sulfa (Sulfonamide AdvReac Diarrhea Verified 12/25/22 21:28 Antibiotics) Exam Exam Date and Time: December 26, 2022 1502 Height,Weight and Vital Signs: Height 5 ft 4 in Weight 74.843 kg Last Vital Signs Temp 97.6 F 12/26/22 14:50 Pulse 66 12/26/22 14:50 Resp 18 12/26/22 14:50 BP 138/84 12/26/22 14:50 Pulse Ox 98 12/26/22 14:50 O2 Del Method Room Air 12/26/22 14:50 Pertinent Lab Results Pertinent Lab Results: Laboratory Tests 12/25/22 12/26/22 12/26/22 21:56 00:12 04:39 WBC 12.3 H RBC 3.57 L Hgb 12.0 11.8 L 11.1 L Hct 33.3 L 33.2 L 31.8 L MCV 93.3 MCH 33.6 H MCHC 36.0 H RDW 12.0 Plt Count 254 MPV 10.4 Immature Gran % (Auto) 0.3 Neut % (Auto) 76.5 H Lymph % (Auto) 16.9 L [place] % (Auto) 4.7 Eos % (Auto) 1.2 Baso % (Auto) 0.4 Lymph # (Auto) 2.1 [place] # (Auto) 0.6 Eos # (Auto) 0.2 Baso # (Auto) 0.1 Abs Immat Gran (auto) 0.04 H Absolute Neuts (auto) 9.4 H Absolute Nucleated RBC 0.000 Nucleated RBC % (auto) 0.0 PT 11.2 INR 0.9 Sodium 139 Potassium 3.8 Chloride 106 Carbon Dioxide 23 Anion Gap 14 BUN 13 Creatinine 0.73 Estim Creat Clear Calc 84.3 Estimated GFR > 60 Random Glucose 142 H Calcium 9.3 Total Bilirubin 0.5 AST 21 ALT 13 Alkaline Phosphatase 80 Total Protein 7.0 Albumin 4.0 Blood Type Antibody Screen 12/26/22 12/26/22 05:07 07:41 WBC RBC Hgb 12.5 Hct 36.4 L MCV MCH MCHC RDW Plt Count MPV Immature Gran % (Auto) Neut % (Auto) Lymph % (Auto) [place] % (Auto) Eos % (Auto) Baso % (Auto) Lymph # (Auto) [place] # (Auto) Eos # (Auto) Baso # (Auto) Abs Immat Gran (auto) Absolute Neuts (auto) Absolute Nucleated RBC Nucleated RBC % (auto) PT INR Sodium Potassium Chloride Carbon Dioxide Anion Gap BUN Creatinine Estim Creat Clear Calc Estimated GFR Random Glucose Calcium Total Bilirubin AST ALT Alkaline Phosphatase Total Protein Albumin Blood Type A Positive Antibody Screen NEGATIVE Airway Mallampati Class: II TM Dist: >3cm Neck ROM: Full Assessment and Plan Assessment Anesthesia Assessment: Anesthesia Plan Discussed and Chart Reviewed Final Anesthetic Review Family History of Problems with Anesthesia: No History of Problems with Anesthesia: No NPO: Yes ASA Class: II and Emergency Final Preanesthetic Review: No Changes in Pt Med Stat, Meds/Allgs Chart Reviewed, Consent Obtained/Reviewed and Anes Risks/Benef Reviewed Patient Risk: Intermediate Procedure Risk: Low Anesthetic Plan Anesthetic Plan: MAC: Disposition: Standard PACU
--- NOTE | 2022-12-26 15:38 | MHC.SHP ---
Pre-Procedural Eval Section A Date of Service: 12/26/22 The patient is an INPATIENT: No The History & Physical has been completed within 30 days and I have reviewed it.: Yes Section B Chief Complaint: colonscopy 12/24 rectal bleeding Relevant Family History (Specify if Yes): No Relevant Social History: None Present Medications: see Short Stay Collaborative assessment Medical History: No relevant PMH History of Previous Operations: Relevant previous surgery/procedure and date(s) (History of colonoscopy) Allergies: Allergies Allergy/AdvReac Type Severity Reaction Status Date / Time codeine AdvReac Gastrointestinal Verified 12/25/22 21:28 Upset Sulfa (Sulfonamide AdvReac Diarrhea Verified 12/25/22 21:28 Antibiotics) Review of Systems Sugical H&P ROS: Negative: Constitution, Cardiovascular and Respiratory and Yes, Specify: Gastrointestinal (LGI bleeding) Exam Surgical H&P Exam: Normal: HEENT, Normal: Heart, Normal: Lungs, Normal: Extremities and Normal: Abdomen Plan Diagnosis/Plan: Change (Proceed with colonoscopy) I have reviewed the history and physical and performed a pertinent physical examination on my patient. No changes have occurred unless specified. Time Spent With Patient Time: Total time managing care of this patient today ____ minutes.
--- NOTE | 2022-12-26 16:32 | P.OP_ITS ---
Operative Note Operative Note Date of Service: 12/26/22 Narrative: COLONOSCOPY TILL CECUM WITH COAGULATION Pre-op diagnosis: Post polypectomy bleeding Post-op diagnosis:? Same Endoscopist:? Leticia Patricia MD Anesthesia:?MAC Consent: Indications for the procedure and potential complications of bleeding, perforation, reaction to medications and missed diagnosis were discussed with the patient and informed consent was obtained. Instrument: Olympus PCF H 190 L variable stiffness pediatric colonoscope Monitoring: Vital signs and clinical assessment, intermittent blood pressure monitoring, continuous EKG monitoring, Pulse oximetry and Carbon Dioxide monitoring were done throughout the procedure. Please see anesthesia flowsheet. Colon withdrawl time was 25 minutes. Procedure: The patient was placed in the left lateral decubitis position and pre-procedure medications were administered. After a digital rectal examination of the ano-rectum, the video colonoscope was inserted into the rectum and advanced through the colon to the cecum. The colonoscope was slowly withdrawn in a retrograde panoramic fashion and the colon mucosa was carefully examined including a retroflexed view of the rectum. Findings and interventions are described below. Procedure Difficulty: Colon was long and tortuous and there was some loop formation Findings: Terminal Ileum: Not evaluated Cecum: Normal Ascending Colon: Polypectomy site seen in the distal AC with [address]. An area of palma red spots without active bleeding in the lower part of polypectomy site Attempts to place a 3rd hemoclip were unsuccessful due to location at a bend. Area was treated with coagulation with a Gold probe. Transverse Colon: Normal Descending Colon: Normal Sigmoid Colon: Moderate diverticulosis Rectum: Normal Ano-rectum: Normal Colon preparation: Excellent Impression and Post Procedure Diagnosis: Colonoscopy Findings: Polypectomy site seen in the distal AC with [address]. An area of palma red spots without active bleeding in the lower part of polypectomy site Attempts to place a 3rd hemoclip were unsuccessful due to location at a bend. Area was treated with coagulation with a Gold probe. Moderate diverticulosis seen in the sigmoid colon Plan: Above findings were reviewed with the patient and she was advised to FU with her Web Consultant at [facility] or return to [facility] in case of recurrent bleeding.
== END 2022-12-26 16:59 | disposition home or self-care (01) ==
LOC: HO.ED 12-26 13:20 → HO.SSS 12-26 13:24
PROVIDERS: Internal Medicine; Emergency Provider Emergency Medicine; PCP Internal Medicine; Visit Provider Internal Medicine Gastroenterology
PROC: 0DBE8ZZ Excision of Large Intestine, Via Natural or Artificial Opening Endoscopic (ICD-10-PCS; CPT 45382; 2022-12-26 14:50)
DX: K91.840 Postprocedural hemorrhage of a digestive system organ or structure following a digestive system procedure (principal); Y84.8 Other medical procedures as the cause of abnormal reaction of the patient, or of later complication, without mention of misadventure at the time of the procedure; Y92.009 Unspecified place in unspecified non-institutional (private) residence as the place of occurrence of the external cause; K57.30 Diverticulosis of large intestine without perforation or abscess without bleeding; K56.2 Volvulus; R10.32 Left lower quadrant pain
CPT/HCPCS: 45382; 36415; 74178; 80053; 85014; 85018; 85025; 85610; 86850; 86900; 86901; 93005; 96361; 96374; 99285; Q9967

== ENCOUNTER → 2022-12-26 13:20 | Outpatient (BNV) | payer OTHER, SELFPAY | PROVIDERS: Emergency Provider Emergency Medicine; PCP Internal Medicine; Visit Provider Internal Medicine Gastroenterology | DX: K91.840 Postprocedural hemorrhage of a digestive system organ or structure following a digestive system procedure (principal); K57.30 Diverticulosis of large intestine without perforation or abscess without bleeding | CPT/HCPCS: 45382 ==